=== PATIENT | male | born 1990 | race Caucasian/White ===

== ENCOUNTER → 2016-07-20 | Outpatient (CLI) | payer MEDICARE, MEDICAID | END | disposition home or self-care (01) | LOC: RAD.S 07-11 08:00 | DX: R11.2 Nausea with vomiting, unspecified (principal) ==

== ENCOUNTER 2016-08-01 16:38 | Emergency (ER) | payer MEDICARE, MEDICAID ==
--- NOTE | 2016-08-28 17:08 | ER ---
ADMIT: 08/01/2016 RM/LOC: ER [facility] MR#: [id number] [address] [id number] MARÍA ELENA GÓMEZ [address] [place] [address] Emergency Room Report SEX: M AGE: 26 : 1990 DATE: 08/01/2016 HISTORY OF PRESENT ILLNESS: A 26-year-old male comes to the Emergency Department with bloody stools for the past several days. He had been seen by PA in [facility] where they had done stool culture and found that is positive for C. difficile and given him prescription for oral vancomycin for some length and the reason he did not fill the prescription or take vancomycin, but instead came directly to the Emergency Department after seeing the primary care PA. See T-sheet for history and physical. His white count was 14.4 and platelets 246,000. Electrolytes were within normal limits. Again, he was diagnosed with C. difficile in an Outpatient Clinic. He was given vancomycin here and a prescription for vancomycin. Instructed to fill the prescription and take it as directed and to follow up with his primary care doctor in 1 to 2 days. DIAGNOSIS: Clostridium difficile. Brad Leggett MD/ renzo JOB #: [id number] CC: Jose Chiu MD, Attending Physician Ed Sanchez MD, Family Physician
== END 2016-08-01 19:18 | disposition home or self-care (01) ==
LOC: ER 16:38
DX: B96.89 Other specified bacterial agents as the cause of diseases classified elsewhere (principal); F31.9 Bipolar disorder, unspecified; M54.9 Dorsalgia, unspecified; G89.29 Other chronic pain

== ENCOUNTER 2016-09-21 17:43 | Emergency (ER) | payer MEDICARE, MEDICAID ==
--- NOTE | 2016-10-01 18:06 | ER ---
ADMIT: 09/21/2016 RM/LOC: ER [facility] MR#: [id number] [address] [id number] MARÍA ELENA GÓMEZ [address] [place] [address] Emergency Room Report SEX: M AGE: 26 : 1990 DATE: 09/21/2016 ADDENDUM: CHIEF COMPLAINT: Right upper quadrant pain. HISTORY OF PRESENT ILLNESS: This is a 26-year-old male, who has a history of C. diff about a month ago. He said this pain just started days having more diarrhea. COURSE IN THE EMERGENCY ROOM: CBC, CMP, and urine were collected. CBC was normal with a white count of 8.7, hemoglobin 14.3, platelets slightly low at 142. Urine is normal except for 3 red blood cells. I did attempt to do a CT here in the emergency room. They started to attempt it, but he is a full of barium, so would not be a good study at this time. Since his CBC is normal, his pain has actually slightly improved, I canceled the CT, treating him as if his C. diff is returning with the Flagyl x10 days, having him push fluids, do a bland diet, and follow up with Marleny Oates this week if symptoms do not improve. CLINICAL IMPRESSION: Right upper quadrant abdominal pain with history of recent Clostridium difficile and diarrhea. JUSTIN Ceron / Ray Rossi MD / renzo JOB #: [id number] CC: Santhosh Michael MD, Attending Physician Santiago Kelly MD, Family Physician
== END 2016-09-21 20:33 | disposition home or self-care (01) ==
LOC: ER 17:43
DX: R10.11 Right upper quadrant pain (principal); R19.7 Diarrhea, unspecified; Z88.8 Allergy status to other drugs, medicaments and biological substances